=== PATIENT | female | born 1975 | race Caucasian/White ===

== ENCOUNTER 2016-08-19 14:59 | Outpatient (CLI) ==
--- NOTE | 2016-08-19 16:03 | DI ---
EXAM: Six views of bilateral ribs. History: Bilateral rib pain. Findings: The visualized lungs are free of consolidation. No pleural fluid and no pneumothorax. N o acute displaced rib fractures identified. Surgical clips seen within the right upper quadrant of the abdomen. Impression: Unremarkable study.
--- NOTE | 2016-08-19 16:03 | DI ---
EXAM: Lumbar spine radiographs. HISTORY: Back pain. COMPARISON: None available. TECHNIQUE: Three views of the lumbar spine. FINDINGS: The normal curvature and alignment are maintained. Vertebral body and intervertebral dis c heights are normal. No fracture or subluxation identified. Mild endplate osteophyte formation se en at L3-4 and L4-5. Mild lower lumbar facet arthropathy is present. Sacral arcuate lines are inta ct. Soft tissues are unremarkable. Clips seen in the right abdomen. IMPRESSION: Mild lower lumbar degenerative changes.
== END 2016-08-19 15:00 | disposition home or self-care (01) ==
LOC: RAD 14:59
PROVIDERS: ATTEND Family Medicine
DX: M54.5 Low back pain (principal); R07.81 Pleurodynia

== ENCOUNTER 2016-10-29 20:28 | Emergency (ER) ==
[2016-10-29] MEDS ORDERED: CATAPRES PO STA (20:31)
[2016-10-29] MEDS ORDERED: LOPRESSOR PO STA (20:31)
[2016-10-29] MEDS ORDERED: NORVASC PO STA (20:31)
[2016-10-29 20:36] VITALS: BP 166/111; TEMP 97.6; BMI 38.2
[2016-10-29 20:48] LABS: BASOPHILS % (AUTO) 0.3 % (0.0-3.0); EOSINOPHILS # (AUTO) 0.2 K/ul (0.0-0.7); HEMATOCRIT 39.3 % (37.0-47.0); HEMOGLOBIN 13.6 g/dl (12.0-16.0); LYMPHOCYTES # (AUTO) 1.7 K/uL (0.60-3.4); LYMPHOCYTES % (AUTO) 24.6 (10.0-50.0); MEAN CORPUSCULAR HEMOGLOBIN 29.5 pg (27.0-31.0); MEAN CORPUSCULAR HGB CONC 34.6 (31.8-35.4); MEAN CORPUSCULAR VOLUME 85.2 fl (81.0-99.0); MONOCYTES # (AUTO) 0.4 K/uL (0.4-2.0); MONOCYTES % (AUTO) 5.3 (0-10); NEUTROPHILS # (AUTO) 4.6 K/ul (2.0-6.9); NEUTROPHILS % (AUTO) 65.8; PLATELET COUNT 214 10^3/uL (140-440); RED BLOOD COUNT 4.61 10^6/ul (4.20-5.40); WHITE BLOOD COUNT 6.95 K/ul (4.6-10.2)
[2016-10-29 20:53] LABS: BILIRUBIN,URINE Negative (NEGATIVE); KETONES,URINE Trace (NEGATIVE); LEUKOCYTE ESTERASE ,URINE Negative (NEGATIVE); NITRITE,URINE Negative (NEGATIVE); PH,URINE 5.5 (5-9); PROTEIN,URINE 1+ (NEGATIVE); URINE, BLOOD Negative (NEGATIVE)
[2016-10-29 20:57] LABS: ADD URINE MICROSCOPIC YES
[2016-10-29 20:58] LABS: BACTERIA,URINE 1+ (NOT PRESENT)
[2016-10-29 21:15] LABS: ALANINE AMINOTRANSFERASE 40 U/L (12-78); ALBUMIN 3.5 g/dL (3.4-5.0); ALBUMIN/GLOBULIN RATIO 0.95; ALKALINE PHOSPHATASE 105 U/L (42-98); ANION GAP 14.7; ASPARTATE AMINO TRANSFERASE 34 U/L (15-37); BILIRUBIN,TOTAL 0.28 mg/dL (0.00-1.20); BLOOD UREA NITROGEN 12 mg/dL (7-18); BUN/CREATININE RATIO 14.11; CALCIUM 9.4 mg/dL (8.2-10.2); CARBON DIOXIDE 24 mmol/L (21-32); CHLORIDE 106 mmol/L (98-107); CREATINE KINASE 49 U/L; CREATININE 0.85 mg/dL (0.60-1.30); GLUCOSE 138 mg/dL (70-110); POTASSIUM 3.7 mmol/L (3.5-5.10); SODIUM 141 mmol/L (136-145); TOTAL PROTEIN 7.2 g/dL (6.4-8.2)
--- NOTE | 2016-10-29 21:32 | ED.PDOC ---
General ED Provider: Dr. JEREL HARTMANN-ER Chief Complaint: Hypertension Stated Complaint: daniel been out of my mds for a week--my bp is up--i had a awlker earlier and cp earlier but not now Time Seen by Physician: 20:35 Mode of Arrival: Walk-In Information Source: Patient Exam Limitations: No limitations Primary Care Provider: BRIGIDA RAJAN Nursing and Triage Documentation Reviewed and Agree: Yes Cardiovascular Complaint Exam - Hypertension Complaint/Exam Onset/Duration: 4 days Symptoms Are: Still present Timing: Constant Reported B/P Prior to Arrival: 180/90- Aggravating: Reports: None Alleviating: Reports: None Associated Signs and Symptoms: Denies: Chest pain, Vision changes, Anxiety, Recent stress, Headache, Numbness, Tingling, Weakness, Dizziness, Short of air, Swelling Related History: Reports: Similar episode Related Surgical History: Reports: None Cardiac Risk Factors: Reports: Hypertension Recent Change in Medications: Yes (shecant find them for a week) A/V [place]: No Papilledema Present: No JVD Present: No Carotid Bruit Present: No Femoral Pulses Bounding: No Differential Diagnoses: Hypertension Quality Indicator For Non-Traumatic Chest Pain/Syncope: EKG Performed Review of Systems - Review Of Systems Constitutional: Reports: No symptoms Eyes: Reports: No symptoms Ears, Nose, Mouth, Throat: Reports: No symptoms Respiratory: Reports: No symptoms Cardiac: Reports: No symptoms GI: Reports: No symptoms : Reports: No symptoms Musculoskeletal: Reports: No symptoms Skin: Reports: No symptoms Neurological: Reports: No symptoms Endocrine: Reports: No symptoms Hematologic/Lymphatic: Reports: No symptoms All Other Systems: Reviewed and Negative Past Medical History - Past Medical History Endocrine: Reports: Unknown Cardiovascular: Reports: Hypertension Respiratory: Reports: Unknown Hematological: Reports: Unknown Gastrointestinal: Reports: Unknown Genitourinary: Reports: Unknown Neuro/Psych: Reports: Unknown Musculoskeletal: Reports: Unknown Cancer: Reports: Unknown Last Menstrual Period: LAST WEEK - Surgical History General Surgical History: Reports: Unknown - Family History Family History: Reports: Unknown - Social History Smoking Status: Former smoker Hx Substance Use: No Alcohol Screening: None - Immunizations Tetanus Shot up to Date: No Physical Exam - Physical Exam Appearance: Well-appearing, No pain distress, Well-nourished Eyes: MODESTA, EOMI, Conjunctiva clear ENT: Ears normal Neck: Supple Respiratory: Airway patent, Breath sounds clear, Breath sounds equal, Respirations nonlabored Cardiovascular: RRR, Pulses normal, No rub, No murmur GI/: Soft, Nontender, No masses, Bowel sounds normal, No Organomegaly Musculoskeletal: Normal strength, ROM intact, No edema, No calf tenderness Skin: Warm, Dry, Normal color Neurological: Sensation intact Psychiatric: Affect appropriate, Mood appropriate Interpretation - EKG Interpretation Time of EKG #1: 21:32 Rate: Normal Rhythm: Sinus Ectopy: None [place]: NL ST Segment: Normal Re-Evaluation - Re-Evaluation Time of Re-Evaluation: 21:33 (no walker or chest pain) Status: Improved Vital Signs Stable: Yes (bp 149/82) Pain Level: 0 Appearance: NAD Lungs: Clear Skin: Warm and Dry Neuro: Alert and Oriented X3 CV: RRR Critical Care Note - Critical Care Note Total Time (mins): 0 Course - Course Hematology/Chemistry: 10/29/16 20:45 10/29/16 20:45 Orders, Labs, Meds: Lab Review 10/29/16 20:45 WBC 6.95 RBC 4.61 Hgb 13.6 Hct 39.3 MCV 85.2 MCH 29.5 MCHC 34.6 RDW Coeff of Jonah 14.4 Plt Count 214 Immature Gran % (Auto) 1.0 Neut % (Auto) 65.8 Lymph % (Auto) 24.6 Dyer % (Auto) 5.3 Eos % (Auto) 3.0 Baso % (Auto) 0.3 Immature Gran # (Auto) 0.1 Neut # 4.6 Lymph # 1.7 Dyer # 0.4 Eos # 0.2 Baso # 0.0 Sodium 141 Potassium 3.7 Chloride 106 Carbon Dioxide 24 Anion Gap 14.7 BUN 12 Creatinine 0.85 Estimated GFR (MDRD) 74.00 BUN/Creatinine Ratio 14.11 Glucose 138 H Calcium 9.4 Total Bilirubin 0.28 AST 34 ALT 40 Alkaline Phosphatase 105 H Total Creatine Kinase 49 Troponin I < 0.0100 Total Protein 7.2 Albumin 3.5 Globulin 3.7 Albumin/Globulin Ratio 0.95 Urine Color Yellow Urine Clarity Clear Urine pH 5.5 Ur Specific [place] 1.025 Urine Protein 1+ Urine Glucose (UA) Negative Urine Ketones Trace Urine Blood Negative Urine Nitrite Negative Urine Bilirubin Negative Urine Urobilinogen 0.2 Ur Leukocyte Esterase Negative Urine Microscopic WBC 0-2 Ur Squamous Epith Cells 5-10 Urine Bacteria 1+ Urine Mucus 2+ Orders Category Date Time Status EKG-(ED ONLY) Stat CARDIO 10/29/16 20:38 Completed Cover Machine Operator [ED PROTEIN SCIENTIST APPLIED] .ONCE EMERGENCY 10/29/16 20:30 Active CBC W/ AUTO DIFF Stat LAB 10/29/16 20:45 Completed COMPREHENSIVE METABOLIC PANEL Stat LAB 10/29/16 20:45 Completed CREATINE KINASE Stat LAB 10/29/16 20:45 Completed TROPONIN I Stat LAB 10/29/16 20:45 Completed URINALYSIS C & S IF INDICATED Stat LAB 10/29/16 20:45 Completed URINE CULTURE Stat LAB 10/29/16 20:45 Received Amlodipine Besylate [Norvasc] MEDS 10/29/16 20:31 Discontinued 10 mg PO ONCE STA Clonidine HCl [Catapres] MEDS 10/29/16 20:31 Discontinued 0.1 mg PO ONCE STA Metoprolol Tartrate [Lopressor] MEDS 10/29/16 20:31 Discontinued 50 mg PO ONCE STA Medications Discontinued Medications Generic Name Dose Route Start Last Admin Trade Name Freq PRN Reason Stop Dose Admin Amlodipine Besylate 10 mg 10/29/16 20:31 10/29/16 20:52 Norvasc PO 10/29/16 20:32 10 mg ONCE STA Administration Clonidine 0.1 mg 10/29/16 20:31 10/29/16 20:51 Catapres PO 10/29/16 20:32 0.1 mg ONCE STA Administration Metoprolol Tartrate 50 mg 10/29/16 20:31 10/29/16 20:51 Lopressor PO 10/29/16 20:32 50 mg ONCE STA Administration Vital Signs: Temp Pulse Resp BP Pulse Ox 10/29/16 20:30 97.6 F 90 20 166/111 H 97 SEA Risk Score SEA Risk Score: Risk Score Odds of by 30D 0 0.1 (0.1-0.2) 1 0.3 (0.2-0.3) 2 0.4 (0.3-0.5) 3 0.7 (0.6-0.9) 4 1.2 (1.0-1.5) 5 2.2 (1.9-2.6) 6 3.0 (2.5-3.6) 7 4.8 (3.8-6.1) Departure - Departure Time of Disposition: 21:33 Disposition: HOME SELF-CARE Discharge Problem: Hypertension Qualifiers: Hypertension type: essential hypertension Qualifier Code: (I10) Essential ( primary) hypertension Instructions: Chronic Hypertension (ED) Condition: Good Pt referred to PMD for follow-up: Yes Additional Instructions: go to dr matthew office in am and ask nurse for replacement meds Allergies/Adverse Reactions: Allergies morphine Adverse Reaction (Verified 10/29/16 20:40) Swelling Home Medications: Ambulatory Orders Amlodipine Besylate 10 mg PO DAILY 10/29/16 Carvedilol [Coreg] 3.125 mg PO BIDWM 10/29/16 Clopidogrel Bisulfate [Plavix] 75 mg PO DAILY 10/29/16 Gabapentin 100 mg PO TID 10/29/16 Lisinopril [Zestril] 40 mg PO DAILY 10/29/16 Metformin HCl 1,000 mg PO BEDTIME 10/29/16 Disposition Discussed With: Patient
== END 2016-10-29 21:39 | disposition home or self-care (01) ==
LOC: ED 20:28
DX: I10 Essential (primary) hypertension (principal); Z79.899 Other long term (current) drug therapy
CPT/HCPCS: 36415; 80053; 81001; 82550; 84484; 85025; 87086; 93005; 93010; 99283

== ENCOUNTER 2017-04-05 21:45 | Outpatient (CLI) | END 2017-04-05 21:46 | disposition home or self-care (01) | LOC: AMBL 21:45 | PROVIDERS: ATTEND Family Medicine | DX: R07.9 Chest pain, unspecified (principal); I25.2 Old myocardial infarction ==

== ENCOUNTER 2017-07-27 08:41 | Outpatient (RCR) ==
--- NOTE | 2017-07-28 10:34 | RS.OPPTEV2 ---
Date of Note: 07/27/17 Visit #: 1 Date of Evaluation: 07/27/17 Payer Source: Medicaid Surgery Performed?: No Treatment Diagnosis: headaches, concussion, chronic back pain History of Condition/Mechanism of Injury:: pt states she was in sleeping compartment of semi truck when started truck and she was thrown back and hit her head causing concussion approx 3 weeks ago. Prior Level of Function.....Patient was independent with: ADL's, Self Care, Caregiving, Ambulation/Mobility, Community Integration/Access Functional Limitations: Sleep, Lifting Current Subjective/complaints:: pt states she has had long history of ORDONEZ but has had one continuous since concussion. She states she also has long history of chronic back pain. 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 Treatment Side (optional): N/A *Precautions: n/a Medical History Medical History: Hypertension, Diabetes Medical History Comments:: CAD, s/p 2 MA Surgical History: Cholecystectomy Surgical History Comments:: appey, cardiac stents Smoking Status: Former smoker Hx Home Medications: amlodipine, aspirin, atorvastatin, carvedilol, divalproex, gabapentin, lisinopril, meloxicam, metformin ER, omeprazole, ondansetron, sertraline, ticagrelor Patient's Goals: decrease pain with headache. Pain Assessment - Pain Description Pain Location: headache Pain Description: Aching Current Pain Intensity: 5/10 Functional Outcome Measure Neck Disability Index: 18 - G Codes & Severity Modifier G Codes & Modifier: n/a Source of G Code score: n/a Observation - Observation Posture: Forward Head, Rounded Shoulders Gait - Gait Pattern General Gait Pattern Observation: No Deviations/Normal General Range of Motion: WFL's all 4 extr's Muscle Strength: BUE grossly 5/5. BLE grossly 5/5 - ROM Comments: ROM WFL's with pain with flex and side bending - Special Tests Foraminal Distraction: Negative Foraminal Compression: Negative Left, Negative Right - ROM Lumbar Flexion: Hand reach to patellae Sidebending to Left: Reach to Mid-thigh Sidebending to Right: Reach to Mid-thigh Lumbar Spine ROM Limitations: Soft Tissue Tightness, Pain Comments: pt reports no pain in lumbar spine at rest, pain only with twisting motions and side bending. pt with B hamstring tightness noted - Special Tests SLR Test: Negative Left, Negative Right Palpation Palpation Findings: Trigger Point, Muscle Guarding Comments:: pt with muscle tightness noted in cervical paraspinals R worse than L. muscle tightness b upper trap L worse than R. trigger points and tightness noted in L supraspinatus and along scapular border Sensation - Sensation Right Upper Extremity: Intact/Normal Left Upper Extremity: Intact/Normal Right Lower Extremity: Intact/Normal Left Lower Extremity: Intact/Normal Balance - Sitting Balance Static Sitting Balance: Normal Dynamic Sitting Balance: Normal - Standing Balance Static Standing Balance: Normal Dynamic Standing Balance: Normal - Treatment Modality: Electrical Stim Unattended Parameters/Method Applied: IFC x 20 mins cervical paraspinals and L upper trap at 10ma Treatment Area: cervical paraspinals and L upper trap Patient Position: Supine - Heat/Cryotherapy Treatment: Cryotherapy Comments:: cervical and upper trap Interventions - Exercise/Activities/Manual Therapy Exercises/Activities: pt performed gentle upper trap stretch, chin tucks, scapular retraction, shld shrugs x 5 to 10 reps. Manual Therapy: n/a HOME EXERCISE PROGRAM: pt given written HEP including chin tucks, scapular retraction, shld shrugs and upper trap stretch - Charges Timed Code Treatment Minutes: 42 Total Treatment Time: 60 Procedures billed for this date of service:: eval low, estim unattended, cold pack EVALUATION COMPLEXITY LEVEL EVALUATION COMPLEXITY LEVEL: HISTORY: Low (DM, HTN, ), EXAM OF BODY SYSTEMS: Low (pain, muscle tightness, ), CLINICAL PRESENTATION: Medium, CLINICAL DECISION MAKING: Medium Assessment Assessment: pt presents with headaches, cervical muscle tightness, trigger points as well as scapular trigger points and muscle tightness. Patient Education: Education of diagnosis, Home Exercise Program, Education of Plan of Care Rehab Potential: Good Short Term Goals Goal #1: pt rate pain <5/10 with activity Goal to be met by: 08/09/17 Goal #2: pt report having relief from headaches to allow pt to sleep Goal to be met by: 08/09/17 [facility] Goals Goal #1: decreased muscle tightness in cervical spine allowing ROM w less pain Goal to be met by: 08/23/17 Goal #2: pain < 3/10 with activity Goal to be met by: 08/23/17 Goal #3: pt independent with HEP Goal to be met by: 08/23/17 Goal #4: pt report ability to return to normal household activities Goal to be met by: 08/23/17 Plan - Treatment to be Provided Procedures: Therapeutic Exercises, Therapeutic Activity, Manual Therapy, Massage , Patient Education Modalities: Electrical Stimulation, Ultrasound/Phonophoresis, Class IV Laser, Cryotherapy, Hot Packs - Treatment Plan Frequency: 2 X week Duration: 4 weeks ORDER # VISITS AND/OR THROUGH DATE: 08/23/17 - Treatment Code (1) Chronic headaches Code(s): R51 - HEADACHE Qualifiers: Headache type: unspecified Intractability: intractable Qualified Code(s) : R51 - Headache (2) Muscle tightness Code(s): M62.89 - OTHER SPECIFIED DISORDERS OF MUSCLE (3) Concussion Code(s): S06.0X9A - CONCUSSION W LOSS OF CONSCIOUSNESS OF UNSP DURATION, INIT Qualifiers: Encounter type: initial encounter Loss of consciousness presence/duration: with LOC of unspecified duration Qualified Code(s): S06.0X9A - Concussion with loss of consciousness of unspecified duration, initial encounter
--- NOTE | 2017-07-30 15:02 | RS.CXNS ---
Date of scheduled appointment: 07/30/17 Type: No Show
== END 2017-08-18 ==
PROVIDERS: ATTEND Family Medicine
DX: R51 Headache (principal); S06.0X9D Concussion with loss of consciousness of unspecified duration, subsequent encounter; M54.9 Dorsalgia, unspecified; G89.29 Other chronic pain

== ENCOUNTER 2017-10-26 19:51 | Emergency (ER) ==
[2017-10-26 20:02] VITALS: BP 170/103; TEMP 99; BMI 38.0
--- NOTE | 2017-10-26 20:09 | ED.PDOC ---
General ED Provider: Dr. JEREL HARTMANN-ER Chief Complaint: Cough Stated Complaint: daniel had a cough--yellow sputum Time Seen by Physician: 20:06 Mode of Arrival: Walk-In Information Source: Patient Exam Limitations: No limitations Primary Care Provider: BRIGIDA DAVIS Nursing and Triage Documentation Reviewed and Agree: Yes Reviewed sepsis parameters & appropriate labs ordered?: Yes System Inflammatory Response Syndrome: Not Applicable Sepsis Protocol: For patient's 13 years and over: Temp is 96.8 and below OR 101 and greater Pulse >90 BPM Resp >20/minute Acutely Altered Mental Status Are patient's symptoms suggestive of a new infection, such as: -Pneumonia -Skin, Soft Tissue -Endocarditis -UTI -Bone, Joint Infection -Implantable Device -Acute Abdominal Infection -Wound Infection -Meningitis -Blood Stream Catheter Infection -Unknown Respiratory Complaint Exam - Respiratory Complaint/Exam Onset/Duration: 3 dahys Symptoms Are: Still present Timing: Intermittent Initial Severity: Mild Current Severity: Mild Location: Chest Character: Reports: Productive cough Aggravating: Reports: URI Alleviating: Reports: None Associated Signs and Symptoms: Reports: URI, Nasal congestion, Sore throat. Denies: Rapid breathing, Dyspnea, Fever, Chills, Chest pain, Pleuritic chest pain, Wheezing, Hemoptysis, Calf pain, Calf swelling, Edema, Hoarseness, Sinus discomfort, Vomiting, Weight loss, Decreased oral intake, Increased thirst, Increased appetite, Increased urination History of Healthcare-Acquired Pneumonia: No Related Surgical History: Reports: None Home Oxygen Use: No Recent Stress Test: No Recent Echo/LV Function: No Current Antibiotic Use: No Current Asthma Medication Use: No Respiratory Distress: None Inadequate Respiratory Effort: No Dysphagia Present: No Stridor Present: No Grunting Respirations: No Kussmaul Respirations: No Differential Diagnoses: Bronchitis Review of Systems - Review Of Systems Constitutional: Reports: No symptoms Eyes: Reports: No symptoms Ears, Nose, Mouth, Throat: Reports: Nose discharge Respiratory: Reports: Cough Cardiac: Reports: No symptoms GI: Reports: No symptoms : Reports: No symptoms Musculoskeletal: Reports: No symptoms Skin: Reports: No symptoms Neurological: Reports: No symptoms Endocrine: Reports: No symptoms Hematologic/Lymphatic: Reports: No symptoms All Other Systems: Reviewed and Negative Past Medical History - Past Medical History Previously Healthy: No Endocrine: Reports: Unknown Cardiovascular: Reports: Hypertension Respiratory: Reports: Unknown Hematological: Reports: Unknown Gastrointestinal: Reports: Unknown Genitourinary: Reports: Unknown Neuro/Psych: Reports: Unknown Musculoskeletal: Reports: Unknown Cancer: Reports: Unknown Last Menstrual Period: 1 month ago - Surgical History General Surgical History: Reports: Unknown - Family History Family History: Reports: Unknown - Social History Smoking Status: Former smoker Hx Substance Use: No Alcohol Screening: None - Immunizations Tetanus Shot up to Date: No (unsure) Physical Exam - Physical Exam Appearance: Well-appearing, No pain distress, Well-nourished Eyes: MODESTA, EOMI, Conjunctiva clear ENT: Ears normal Neck: Supple Respiratory: Airway patent, Breath sounds clear, Breath sounds equal, Respirations nonlabored Cardiovascular: RRR, Pulses normal, No rub, No murmur GI/: Soft, Nontender, No masses, Bowel sounds normal, No Organomegaly Musculoskeletal: Normal strength, ROM intact, No edema, No calf tenderness Skin: Warm, Dry, Normal color Neurological: Sensation intact, Motor intact, Reflexes intact, Cranial nerves intact, Alert, Oriented Psychiatric: Affect appropriate, Mood appropriate Critical Care Note - Critical Care Note Total Time (mins): 0 Course - Course Vital Signs: Temp Pulse Resp BP Pulse Ox 10/26/17 19:52 99 F 92 H 20 170/103 H 94 L Departure - Departure Time of Disposition: 20:10 Disposition: HOME SELF-CARE Discharge Problem: Bronchitis Instructions: Acute Bronchitis (ED) Condition: Good Pt referred to PMD for follow-up: Yes IPMP verified?: No Additional Instructions: augmentin 875mg bid x 7 days..mucinex 1200mg bid #30--tessalon perles 200mg tid prn #30--f/u with dr davis regarding the mass on your back Allergies/Adverse Reactions: Allergies morphine Adverse Reaction (Verified 10/26/17 19:57) Swelling Home Medications: Ambulatory Orders Amlodipine Besylate 10 mg PO DAILY 10/29/16 Carvedilol [Coreg] 3.125 mg PO BIDWM 10/29/16 Gabapentin 100 mg PO TID 10/29/16 Lisinopril [Zestril] 40 mg PO DAILY 10/29/16 Metformin HCl 1,000 mg PO BEDTIME 10/29/16 Carvedilol [Coreg] 6.25 mg PO BID 10/26/17 Ticagrelor [Brilinta] 90 mg PO BID 10/26/17 Disposition Discussed With: Patient, Family
== END 2017-10-26 20:15 | disposition home or self-care (01) ==
LOC: ED 19:51
DX: J20.9 Acute bronchitis, unspecified (principal); R22.2 Localized swelling, mass and lump, trunk
CPT/HCPCS: 99282

== ENCOUNTER 2017-12-24 17:57 | Emergency (ER) ==
[2017-12-24] MEDS ORDERED: ASPIRIN CHEWABLE PO STA (18:04)
[2017-12-24 18:05] VITALS: BP 153/79; BMI 37.8
[2017-12-24] MEDS ORDERED: DEMEROL 100 MG/ML SYRINGE IVP STA (18:05)
[2017-12-24] MEDS ORDERED: ZOFRAN 4 MG/2 ML IVP STA (18:05)
--- NOTE | 2017-12-24 18:21 | ED.PDOC ---
General Stated Complaint: CHEST PAIN Time Seen by Physician: 18:00 (STENTED X 3 , HX/O TX ) Mode of Arrival: Wheelchair Information Source: Patient Exam Limitations: No limitations Nursing and Triage Documentation Reviewed and Agree: Yes Does patient meet sepsis criteria?: Yes If yes, has appropriate treatment been initiated?: No System Inflammatory Response Syndrome: Not Applicable <KEMI BOYD - Last Filed: 12/24/17 18:50> <GLEN NORTON - Last Filed: 12/24/17 23:19> ED Provider: Dr. GLEN NORTON Chief Complaint: Chest Pain Primary Care Provider: BRIGIDA RAJAN Sepsis Protocol: For patient's 13 years and over: Temp is 96.8 and below OR 101 and greater Pulse >90 BPM Resp >20/minute Acutely Altered Mental Status Are patient's symptoms suggestive of a new infection, such as: -Pneumonia -Skin, Soft Tissue -Endocarditis -UTI -Bone, Joint Infection -Implantable Device -Acute Abdominal Infection -Wound Infection -Meningitis -Blood Stream Catheter Infection -Unknown Cardiovascular Complaint Exam - Chest Pain Complaint/Exam Onset: Gradual Duration: 1 HR AGO WHILE AT REST DOES NOT SMOKE HAS 3 STENTS Symptoms Are: Still present Timing: Constant Length of Chest Pain Episodes: 1 HR Initial Severity: Moderate Current Severity: Moderate Location: Reports: Midsternal Pain Radiates: Reports: Back Character: Reports: Aching, Tightness Aggravating: Reports: Movement Alleviating: Reports: None Associated Signs and Symptoms: Reports: Nausea, Cough. Denies: Diaphoresis, Vomiting, Fever, Palpitations, Hemoptysis, Back pain, Abdominal pain, Dizziness , Short of air, Calf pain, Calf swelling Related History: Reports: Similar episode (ANGINA ) Related Surgical History: Reports: None History of Healthcare-Acquired Pneumonia: Reports: No AMI/ACS Risk Factors: Reports: Sedentary, Diabetes, Obesity, Hypertension TAD Risk Factors: Reports: Hypertension Pulmonary Embolism Risk Factors: Reports: None Prior Care for this Complaint: Yes (STENTS [place] ,) Recent Stress Test: No Recent Echo/LV Function: No JVD Present: No Subcutaneous Emphysema Present: No Diminshed Breath Sounds: No Reproducible Chest Wall Pain: No Bilateral Pulses Present: Yes Unequal Pulses Noted: No If Risk Factors for AMI/ACS Consider: EKG Differential Diagnoses: ACS Quality Indicators For Acute TX or Cardiac Chest Pain: EKG in 10min. Quality Indicator For Non-Traumatic Chest Pain/Syncope: EKG Performed <KEMI BOYD Filed: 12/24/17 18:50> Review of Systems - Review Of Systems Constitutional: Reports: No symptoms Eyes: Reports: No symptoms Ears, Nose, Mouth, Throat: Reports: No symptoms Respiratory: Reports: No symptoms Cardiac: Reports: Chest pain GI: Reports: No symptoms : Reports: No symptoms Musculoskeletal: Reports: No symptoms Skin: Reports: No symptoms Neurological: Reports: No symptoms Endocrine: Reports: No symptoms Hematologic/Lymphatic: Reports: No symptoms All Other Systems: Reviewed and Negative <KEMI BOYD Filed: 12/24/17 18:50> - Review Of Systems Constitutional: Reports: No symptoms Eyes: Reports: No symptoms Ears, Nose, Mouth, Throat: Reports: No symptoms Respiratory: Reports: No symptoms Cardiac: Reports: No symptoms GI: Reports: Abdomen distended, Abdominal pain : Reports: No symptoms Musculoskeletal: Reports: No symptoms Skin: Reports: No symptoms Neurological: Reports: No symptoms Endocrine: Reports: No symptoms Hematologic/Lymphatic: Reports: No symptoms All Other Systems: Reviewed and Negative <EUGENE NORTONAN - Last Filed: 12/24/17 23:19> Past Medical History - Past Medical History Previously Healthy: No Endocrine: Reports: Unknown Cardiovascular: Reports: Hypertension Respiratory: Reports: Unknown Hematological: Reports: Unknown Gastrointestinal: Reports: Unknown Genitourinary: Reports: Unknown Neuro/Psych: Reports: Unknown Musculoskeletal: Reports: Unknown Cancer: Reports: Unknown Last Menstrual Period: 2 weeks ago - Surgical History General Surgical History: Reports: Unknown - Family History Family History: Reports: Unknown - Social History Smoking Status: Former smoker Hx Substance Use: No Alcohol Screening: None <KEMI BOYD Filed: 12/24/17 18:50> - Past Medical History Previously Healthy: Yes Endocrine: Reports: DM 2, Dyslipidemia Cardiovascular: Reports: CAD Respiratory: Reports: None Hematological: Reports: None Gastrointestinal: Reports: None Genitourinary: Reports: None Neuro/Psych: Reports: None Musculoskeletal: Reports: None Cancer: Reports: None - Surgical History General Surgical History: Reports: Tubal ligation, Cholecystectomy - Family History Family History: Reports: None <GLEN NORTON Last Filed: 12/24/17 23:19> Physical Exam - Physical Exam Appearance: Ill-appearing Ill-appearing: Moderate Pain Distress: Moderate Eyes: MODESTA, EOMI, Conjunctiva clear ENT: Ears normal, Nose normal, Oropharynx normal Respiratory: Airway patent, Breath sounds clear, Breath sounds equal, Respirations nonlabored Cardiovascular: RRR, Pulses normal, No rub, No murmur GI/: Soft, Nontender, No masses, Bowel sounds normal, No Organomegaly Musculoskeletal: Normal strength, ROM intact, No edema, No calf tenderness Skin: Warm, Dry, Normal color Neurological: Sensation intact, Motor intact, Reflexes intact, Cranial nerves intact, Alert, Oriented Psychiatric: Affect appropriate, Mood appropriate <KARINEELYSSAKEMI Last Filed: 12/24/17 18:50> - Physical Exam Appearance: Ill-appearing Eyes: MODESTA, EOMI, Conjunctiva clear ENT: Ears normal, Nose normal, Oropharynx normal Respiratory: Airway patent, Breath sounds clear, Breath sounds equal, Respirations nonlabored Cardiovascular: RRR, Pulses normal, No rub, No murmur GI/: Soft, No masses, Bowel sounds normal, No Organomegaly, Tender Musculoskeletal: Normal strength, ROM intact, No edema, No calf tenderness Skin: Warm, Dry, Normal color Neurological: Sensation intact, Motor intact, Reflexes intact, Cranial nerves intact, Alert, Oriented Psychiatric: Affect appropriate, Mood appropriate <GLEN NORTON - Last Filed: 12/24/17 23:19> 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 Rhythm: Sinus <KARINEELYSSAKEMI Last Filed: 12/24/17 18:50> Re-Evaluation - Re-Evaluation Time of Re-Evaluation: 18:30 Status: Improved Vital Signs Stable: Yes Pain Level: 2/10 Appearance: NAD Lungs: Clear Skin: Warm and Dry Neuro: Alert and Oriented X3 CV: RRR - Re-Evaluation Time of Re-Evaluation: 19:00 (REPEATING THIRD EKG) Status: Unchanged Vital Signs Stable: Yes Pain Level: 2/10 Appearance: NAD Skin: Warm and Dry Neuro: Alert and Oriented X3 CV: RRR <KEMI BOYD Last Filed: 12/24/17 18:50> Physician Notification - Case Discussed Physician Notified: CIERRA Time of Notification: 19:00 <KEMI BOYD - Last Filed: 12/24/17 18:50> - Case Discussed Time of Notification: 23:18 (Dr Styles) <GLEN NORTON - Last Filed: 12/24/17 23:19> Critical Care Note - Critical Care Note Total Time (mins): 0 <KEMI BOYD - Last Filed: 12/24/17 18:50> - Critical Care Note Total Time (mins): 30 <GLEN NORTON - Last Filed: 12/24/17 23:19> Course - Course Hematology/Chemistry: 12/24/17 18:18 <KEMI BOYD - Last Filed: 12/24/17 18:50> - Course Hematology/Chemistry: 12/24/17 18:18 12/24/17 18:18 <GLEN NORTON - Last Filed: 12/24/17 23:19> - Course Orders, Labs, Meds: Lab Review 12/24/17 12/24/17 12/24/17 17:17 18:18 18:18 WBC 9.95 RBC 4.63 Hgb 12.6 Hct 38.8 MCV 83.8 MCH 27.2 MCHC 32.5 RDW Coeff of Jonah 15.5 H Plt Count 248 Immature Gran % (Auto) 1.1 Neut % (Auto) 79.2 Lymph % (Auto) 14.5 Wilson % (Auto) 4.1 Eos % (Auto) 0.7 Baso % (Auto) 0.4 Immature Gran # (Auto) 0.1 Neut # (Auto) 7.9 H Lymph # (Auto) 1.4 Wilson # (Auto) 0.4 Eos # (Auto) 0.1 Baso # (Auto) 0.0 PT 9.5 INR 0.95 APTT 24.5 Sodium Potassium Chloride Carbon Dioxide Anion Gap BUN Creatinine Estimated GFR (MDRD) BUN/Creatinine Ratio Glucose Calcium Total Bilirubin AST ALT Alkaline Phosphatase Total Creatine Kinase Troponin I Total Protein Albumin Globulin Albumin/Globulin Ratio Amylase 80 Lipase 375 H 12/24/17 18:18 WBC RBC Hgb Hct MCV MCH MCHC RDW Coeff of Jonah Plt Count Immature Gran % (Auto) Neut % (Auto) Lymph % (Auto) Wilson % (Auto) Eos % (Auto) Baso % (Auto) Immature Gran # (Auto) Neut # (Auto) Lymph # (Auto) Wilson # (Auto) Eos # (Auto) Baso # (Auto) PT INR APTT Sodium 142 Potassium 3.7 Chloride 106 Carbon Dioxide 24 Anion Gap 15.7 BUN 12 Creatinine 0.91 Estimated GFR (MDRD) 68.00 BUN/Creatinine Ratio 13.18 Glucose 152 H Calcium 9.0 Total Bilirubin 0.8 AST 202 H ALT 99 H Alkaline Phosphatase 527 H Total Creatine Kinase 64 Troponin I < 0.0100 Total Protein 7.3 Albumin 3.5 Globulin 3.8 Albumin/Globulin Ratio 0.92 Amylase Lipase Orders Category Date Time Status EKG-(ED ONLY) Stat CARDIO 12/24/17 18:03 Completed EKG-(ED ONLY) Stat CARDIO 12/24/17 18:30 Completed EKG-(ED ONLY) Stat CARDIO 12/24/17 18:52 Completed ED IV/MEDIPORT/POWERPORT .ONCE EMERGENCY 12/24/17 18:03 Active AMYLASE Stat LAB 12/24/17 17:17 Completed CBC W/ AUTO DIFF Stat LAB 12/24/17 18:18 Completed CMP [COMPREHENSIVE METABOLIC PANEL] Stat LAB 12/24/17 22:49 Received COMPREHENSIVE METABOLIC PANEL Stat LAB 12/24/17 18:18 Completed CREATINE KINASE Stat LAB 12/24/17 18:18 Completed CREATINE KINASE Stat LAB 12/24/17 22:49 Received D-DIMER Stat LAB 12/24/17 22:49 Received LIPASE Stat LAB 12/24/17 17:17 Completed PARTIAL THROMBOPLASTIN TIME Stat LAB 12/24/17 18:18 Completed PT WITH INR Stat LAB 12/24/17 18:18 Completed TROPONIN I Stat LAB 12/24/17 18:18 Completed TROPONIN I Stat LAB 12/24/17 22:49 Received 0.9 % Sodium Chloride [Saline Flush] MEDS 12/24/17 18:03 Ordered 1 syr IVF PRN PRN Aspirin [Aspirin Chewable] MEDS 12/24/17 18:04 Discontinued 243 mg PO ONCE STA Meperidine HCl/Pf [Demerol 100 mg/ml Syringe] MEDS 12/24/17 18:05 Discontinued 25 mg IVP ONCE STA Meperidine HCl/Pf [Demerol 50 mg/ml Vial] MEDS 12/24/17 19:21 Discontinued 50 mg IVP ONCE STA Ondansetron HCl/Pf [Zofran 4 mg/2 ml] MEDS 12/24/17 18:05 Discontinued 4 mg IVP ONCE STA CHEST, 1V AP ONLY Stat RADS 12/24/17 18:[address] ABDOMEN/PELVIS WO CONTRAST Stat RADS 12/24/17 18:53 Completed Medications Generic Name Dose Route Start Last Admin Trade Name Freq PRN Reason Stop Dose Admin Sodium Chloride 1 syr 12/24/17 18:03 12/24/17 19:33 Saline Flush IVF 1 syr PRN PRN Administration To flush IV Discontinued Medications Generic Name Dose Route Start Last Admin Trade Name Freq PRN Reason Stop Dose Admin Aspirin 243 mg 12/24/17 18:04 12/24/17 18:11 Aspirin Chewable PO 12/24/17 18:05 243 mg ONCE STA Administration Meperidine HCl 25 mg 12/24/17 18:05 12/24/17 18:10 Demerol 100 Mg/Ml Syringe IVP 12/24/17 18:06 25 mg ONCE STA Administration Meperidine HCl 50 mg 12/24/17 19:21 12/24/17 19:28 Demerol 50 Mg/Ml Vial IVP 12/24/17 19:22 50 mg ONCE STA Administration Ondansetron HCl 4 mg 12/24/17 18:05 12/24/17 18:10 Zofran 4 Mg/2 Ml IVP 12/24/17 18:06 4 mg ONCE STA Administration Vital Signs: Temp Pulse Resp BP Pulse Ox 12/24/17 21:56 98.6 F 12/24/17 17:58 96.8 F L 55 L 24 153/79 H 99 SEA Risk Score Age >/= 65: No >/= 3 CAD Risk Factors: Yes Known CAD (Stenosis >/= 50%): Yes ASA Use in Past 7 Days: Yes Severe Angina (>/= 2 episodes in 24 hours): Yes EKG ST Changes >/= 0.5mm: Yes Postive Cardiac Marker: No SEA Total Score: 5 <GLEN NORTON - Last Filed: 12/24/17 23:19> SEA Risk Score: Risk Score Odds of by 30D 0 0.1 (0.1-0.2) 1 0.3 (0.2-0.3) 2 0.4 (0.3-0.5) 3 0.7 (0.6-0.9) 4 1.2 (1.0-1.5) 5 2.2 (1.9-2.6) 6 3.0 (2.5-3.6) 7 4.8 (3.8-6.1) Departure - Departure Pt referred to PMD for follow-up: Yes IPMP verified?: No Disposition Discussed With: Patient, Family <KEMI BOYD - Last Filed: 12/24/17 18:50> - Departure Time of Disposition: 23:18 <GLEN NORTON - Last Filed: 12/24/17 23:19> - Departure Disposition: TSF OTHER Discharge Problem: Chest pain Instructions: Angina (ED) Condition: Good Additional Instructions: Please call your Family Physician as soon as possible to schedule a follow-up appointment. Allergies/Adverse Reactions: Allergies morphine Adverse Reaction (Verified 12/24/17 18:05) Swelling Home Medications: Ambulatory Orders Amlodipine Besylate 10 mg PO DAILY 10/29/16 Gabapentin 100 mg PO TID 10/29/16 Lisinopril [Zestril] 40 mg PO DAILY 10/29/16 Metformin HCl 1,000 mg PO BEDTIME 10/29/16 Carvedilol [Coreg] 6.25 mg PO BID 10/26/17 Clopidogrel Bisulfate [Plavix] 75 mg PO DAILY 12/24/17
--- NOTE | 2017-12-24 19:15 | DI ---
Exam: Single view of the chest. Comparison: None available. Reason for exam: Pain. FINDINGS: Ground-glass opacities are seen in the left hemithorax. No pneumothorax is seen. The imag ed osseous structures appear grossly unremarkable without acute fracture. There is obscuration of the left heart border. Impression: Ground-glass in the left knee thorax likely accentuated by soft tissue may represent infl ammation or atelectasis/ infection. Two-view chest x-ray may be performed for further characterizatio n.
[2017-12-24] MEDS ORDERED: DEMEROL 50 MG/ML VIAL IVP STA (19:21)
--- NOTE | 2017-12-24 19:32 | CT ---
EXAM: CT ABDOMEN AND PELVIS HISTORY: Elevated liver enzymes TECHNIQUE: CT abdomen and pelvis without intravenous contrast. Images were reconstructed using 3 mm section thickness. Reformations were prepared. COMPARISON: None FINDINGS: Diagnostic limitations exist without including contrast enhanced images. The liver is enlarged with the right lobe at 23 cm. There is at least mild fatty infiltration of the liver. There is pneumobil ia possibly related to previous sphincterotomy. The patient is post cholecystectomy. The common bile duct is dilated measuring at least 11 mm. No pancreatic pathology is seen. The spleen is upper limi t normal in length at 13 cm. No adrenal mass. The kidneys and ureters appear normal. Mild atherosc lerotic disease of the abdominal aorta and iliac vessels. Enlarged periportal lymph nodes are seen. Stomach is within normal limits. No appendix is identified. Normal bowel gas pattern. Uterus and u rinary bladder appear normal. There is a 2.1 cm cystic mass in the left adnexa likely on the ovary. There is no ascites or inflammatory infiltration of the abdominal fat. No ventral abdominal wall hernia. The bones reveal degenerative facet disease of the lower spine. L subhash bases reveal probable pleuroparenchymal scarring posteriorly on the left. No pneumoperitoneum. IMPRESSION: 1. Enlarged fatty liver. Post cholecystectomy state. Pneumobilia is noted. Common bile duct is dil ated/ectatic. No gross choledocholithiasis or pancreatic pathology. 2. Splenic length upper limit normal at 13 cm. 3. Enlarged periportal lymph nodes are nonspecific. 4. Small 2.1 cm cystic mass left adnexa likely on the ovary. This can be followed by ultrasound. 5. Scarring in the left lung base.
[2017-12-24 21:57] VITALS: TEMP 98.6
[2017-12-25] MEDS ORDERED: LOVENOX SUBCUT STA (00:41)
[2017-12-25] MEDS ORDERED: LOVENOX ONE (00:42)
--- NOTE | 2017-12-25 00:58 | CT ---
EXAM: CT pulmonary angiogram. HISTORY: Chest pain. Evaluate for pulmonary embolism. PROCEDURE: After the intravenous injection of contrast contiguous axial CT images of the chest were obtained with multiplanar reformats, MIP images and 3-D reformats. FINDINGS: There is motion artifact which limits the exam. There is normal enhancement of the pulmonar y arteries with no evidence of pulmonary embolism. The heart is enlarged. The thoracic aorta is nor mal in appearance. There is an enlarged subcarinal lymph node measuring up to 1.4 cm in short axis. T here are patchy areas of consolidation throughout the left lung consistent with pneumonia. There is m inimal right basilar dependent atelectasis. The bones and soft tissues are unremarkable. The gallblad evonne is surgically absent. There is minimal pneumobilia. The adrenal glands are normal in appearance. Impression: No evidence of pulmonary embolism. Left lung consolidation as described consistent with pneumonia. Minimal right basilar dependent atelectasis. Subcarinal lymphadenopathy as described which is probably reactive. Recommend follow-up CT in 3 holly hs to confirm stability. Cardiomegaly. Cholecystectomy with minimal pneumobilia.
== END 2017-12-25 00:50 | disposition short-term general hospital (02) ==
LOC: ED 17:57
DX: R07.9 Chest pain, unspecified (principal); E11.9 Type 2 diabetes mellitus without complications; I10 Essential (primary) hypertension; I25.2 Old myocardial infarction; E78.5 Hyperlipidemia, unspecified; I25.10 Atherosclerotic heart disease of native coronary artery without angina pectoris; E66.9 Obesity, unspecified; Z95.5 Presence of coronary angioplasty implant and graft
CPT/HCPCS: 36415; 80053; 82150; 82550; 83690; 84484; 85025; 85379; 85610; 85730; 93005; 93010; 96372; 96374; 96375; 96376; 99285

== ENCOUNTER 2018-06-20 15:11 | Emergency (ER) ==
[2018-06-20 15:21] VITALS: BP 150/76; TEMP 98.3; BMI 38.9
[2018-06-20] MEDS ORDERED: NORCO 10-325 PO STA (15:57)
--- NOTE | 2018-06-20 15:59 | ED.PDOC ---
General ED Provider: Dr. KEMI BOYD Chief Complaint: Head Injury Stated Complaint: HEAD INJURY W/O L.O.C. Time Seen by Physician: 15:15 (NO LOC) Mode of Arrival: Walk-In Information Source: Patient Exam Limitations: No limitations Primary Care Provider: BRIGIDA RAJAN Nursing and Triage Documentation Reviewed and Agree: Yes Does patient meet sepsis criteria?: No If yes, has appropriate treatment been initiated?: No System Inflammatory Response Syndrome: Not Applicable Sepsis Protocol: For patient's 13 years and over: Temp is 96.8 and below OR 101 and greater Pulse >90 BPM Resp >20/minute Acutely Altered Mental Status Are patient's symptoms suggestive of a new infection, such as: -Pneumonia -Skin, Soft Tissue -Endocarditis -UTI -Bone, Joint Infection -Implantable Device -Acute Abdominal Infection -Wound Infection -Meningitis -Blood Stream Catheter Infection -Unknown Trauma/Injury Complaint Exam - Trauma Complaint/Exam Location of Pain or Injury: Reports: Other (TOP OF SCALP) Mechanism of Injury: Reports: Other (HEAD INJURY) Onset/Duration: 1 DAY Symptoms Are: Still present Timing of Treatment: Immediate Initial Severity: Moderate Current Severity: Mild Character: Reports: Aching Aggravating: Reports: None Alleviating: Reports: None Associated Signs and Symptoms: Denies: LOC, Confusion, Memory loss, Lethargy, Vomiting, Bleeding, Bruising, Swelling, Extremity disuse, Painful respiration, Hoarseness, Dysphagia, Hemoptysis, Significant blood loss Penetrating Injury Risk Factors: Reports: None Related Surgical History: Reports: None Nexus Low Risk Criteria: No post-midline CS tender, No evidence of intoxicat., No Altered LOC, No focal neuro deficit, No distracting injuries Glascow Coma Scale (see protocol): 15 Review of Systems - Review Of Systems Constitutional: Reports: No symptoms Eyes: Reports: No symptoms Ears, Nose, Mouth, Throat: Reports: No symptoms Respiratory: Reports: No symptoms Cardiac: Reports: No symptoms GI: Reports: No symptoms : Reports: No symptoms Musculoskeletal: Reports: No symptoms Skin: Reports: No symptoms Neurological: Reports: Headache Endocrine: Reports: No symptoms Hematologic/Lymphatic: Reports: No symptoms All Other Systems: Reviewed and Negative Past Medical History - Past Medical History Previously Healthy: Yes Endocrine: Reports: DM 2, Dyslipidemia Cardiovascular: Reports: CAD Respiratory: Reports: None Hematological: Reports: None Gastrointestinal: Reports: None Genitourinary: Reports: None Neuro/Psych: Reports: None Musculoskeletal: Reports: None Cancer: Reports: None Last Menstrual Period: last month - Surgical History General Surgical History: Reports: Tubal ligation, Cholecystectomy - Family History Family History: Reports: None - Social History Smoking Status: Former smoker Hx Substance Use: No Alcohol Screening: None Physical Exam - Physical Exam Appearance: Well-appearing, No pain distress, Well-nourished Eyes: MODESTA, EOMI, Conjunctiva clear ENT: Ears normal, Nose normal, Oropharynx normal Respiratory: Airway patent, Breath sounds clear, Breath sounds equal, Respirations nonlabored Cardiovascular: RRR, Pulses normal, No rub, No murmur GI/: Soft, Nontender, No masses, Bowel sounds normal, No Organomegaly Musculoskeletal: Normal strength, ROM intact, No edema, No calf tenderness Skin: Warm, Dry, Normal color Neurological: Sensation intact, Motor intact, Reflexes intact, Cranial nerves intact, Alert, Oriented Psychiatric: Affect appropriate, Mood appropriate Critical Care Note - Critical Care Note Total Time (mins): 0 Course - Course Orders, Labs, Meds: Lab Review 06/20/18 16:05 Urine Test Negative Orders Category Date Time Status URINE Stat LAB 06/20/18 16:05 Completed Hydrocodone Bit/Acetaminophen [[place] 10-325] MEDS 06/20/18 15:57 Discontinued 1 tab PO ONCE STA CT CERVICAL SPINE W/O CONTRAST Stat RADS 06/20/18 15:[address] HEAD W/O CONTRAST Stat RADS 06/20/18 15:56 Completed Medications Discontinued Medications Generic Name Dose Route Start Last Admin Trade Name Reji PRN Reason Stop Dose Admin Hydrocodone Bitart/Acetaminophen 1 tab 06/20/18 15:57 06/20/18 16:07 [place] 10-325 PO 06/20/18 15:58 1 tab ONCE STA Administration Vital Signs: Temp Pulse Resp BP Pulse Ox 06/20/18 15:12 98.3 F 79 20 150/76 H 93 L Departure - Departure Time of Disposition: 17:00 Disposition: HOME SELF-CARE Discharge Problem: Injury of head Headache Qualifiers: Headache type: unspecified Headache chronicity pattern: acute headache Intractability: not intractable Qualified Code(s): R51 - Headache Cervical sprain Qualifiers: Encounter type: initial encounter Qualified Code(s): S13.9XXA - Sprain of joints and ligaments of unspecified parts of neck, initial encounter Instructions: Cervical Strain (ED), Acute Headache (ED) Condition: Good Pt referred to PMD for follow-up: Yes IPMP verified?: No Additional Instructions: Please call your Family Physician as soon as possible to schedule a follow-up appointment. Allergies/Adverse Reactions: Allergies morphine Adverse Reaction (Verified 06/20/18 15:22) Swelling Home Medications: Ambulatory Orders Amlodipine Besylate 10 mg PO DAILY 10/29/16 Gabapentin 100 mg PO TID 10/29/16 Lisinopril [Zestril] 40 mg PO DAILY 10/29/16 Metformin HCl 1,000 mg PO BEDTIME 10/29/16 Carvedilol [Coreg] 6.25 mg PO BID 10/26/17 Clopidogrel Bisulfate [Plavix] 75 mg PO DAILY 12/24/17 Sertraline HCl [Zoloft] 200 mg PO DAILY 06/20/18
[2018-06-20 16:13] LABS: URINE PREGNANCY TEST NEGATIVE (NEGATIVE)
--- NOTE | 2018-06-20 16:47 | CT ---
EXAM: CT cervical spine without contrast. HISTORY: Cervical spine injury COMPARISON: None TECHNIQUE: Serial axial images of the cervical spine were obtained from the skull base through the l subhash apices without contrast. These were viewed in multiple planes. FINDINGS: Vertebral bodies demonstrate normal height, disc space and alignment. The C1 ring is inta ct. There is no lytic or blastic lesion. The odontoid process is unremarkable. There is no central or neural foraminal narrowing noted. Limited views of the soft tissues are unremarkable. The lung apices are clear. IMPRESSION: No acute abnormality or fracture of the cervical spine.
--- NOTE | 2018-06-20 16:50 | CT ---
EXAM: CT Head HISTORY: Injury, pain COMPARISON: None TECHNIQUE: CT head performed without contrast FINDINGS: There is no mass effect, midline shift, or intracranial hemmorhage. Melendez white differenti ation is preserved. There is no extra-axial collection. The ventricles, sulci, and basal cisterns a re patent and symmetric. There is no depressed calvarial fracture. The mastoid air cells are clear. Polypoid mucosal thickening right maxillary sinus likely mucous retention cyst. IMPRESSION: 1. No acute intracranial abnormality. 2. Sinus mucosal changes.
== END 2018-06-20 17:05 | disposition home or self-care (01) ==
LOC: ED 15:11
DX: S09.90XA Unspecified injury of head, initial encounter (principal); R51 Headache; S13.9XXA Sprain of joints and ligaments of unspecified parts of neck, initial encounter
CPT/HCPCS: 81025; 99283

== ENCOUNTER 2018-08-04 17:58 | Emergency (ER) ==
[2018-08-04 18:05] VITALS: BP 131/84; TEMP 98.2; BMI 39.4
--- NOTE | 2018-08-04 19:42 | ED.PDOC ---
General ED Provider: Dr. JIGAR RICKETTS Chief Complaint: Abdominal Pain Stated Complaint: Has periodic checks for stents in common bile duct due to "clogged bile".Last-in June 2018 .Now concerned with pressure in epigastrium and general abdominal discomfort.Eats and has BM daily.,Gives a phone # to call her doctors at [facility] when ready, Time Seen by Physician: 22:24 Mode of Arrival: Walk-In Information Source: Patient Exam Limitations: No limitations Primary Care Provider: BRIGIDA RAJAN Referred to ED by: Other Nursing and Triage Documentation Reviewed and Agree: Yes Does patient meet sepsis criteria?: No System Inflammatory Response Syndrome: Not Applicable Sepsis Protocol: For patient's 13 years and over: Temp is 96.8 and below OR 101 and greater Pulse >90 BPM Resp >20/minute Acutely Altered Mental Status Are patient's symptoms suggestive of a new infection, such as: -Pneumonia -Skin, Soft Tissue -Endocarditis -UTI -Bone, Joint Infection -Implantable Device -Acute Abdominal Infection -Wound Infection -Meningitis -Blood Stream Catheter Infection -Unknown GI Complaint Exam - Abdominal Pain Complaint/Exam Onset: Gradual Duration: ongoing Symptoms Are: Still present Timing: Intermittent Initial Severity: Moderate Current Severity: Mild Location of Pain: Diffuse, Epigastric Radiates To: Reports: Chest Character: Reports: Aching Aggravating: Reports: Food Alleviating: Reports: Rest, Medication Associated Signs and Symptoms: Reports: Chest pain, Decreased appetite, Decreased activity Review of Systems - Review Of Systems Constitutional: Reports: Loss of appetite, Other Eyes: Reports: No symptoms Ears, Nose, Mouth, Throat: Reports: No symptoms Respiratory: Reports: No symptoms Cardiac: Reports: No symptoms GI: Reports: Abdomen distended, Abdominal pain : Reports: No symptoms Musculoskeletal: Reports: No symptoms Skin: Reports: No symptoms Neurological: Reports: No symptoms Endocrine: Reports: No symptoms Hematologic/Lymphatic: Reports: No symptoms All Other Systems: Reviewed and Negative Past Medical History - Past Medical History Previously Healthy: Yes Endocrine: Reports: DM 2, Dyslipidemia Cardiovascular: Reports: CAD Respiratory: Reports: None Hematological: Reports: None Gastrointestinal: Reports: None Genitourinary: Reports: None Neuro/Psych: Reports: None Musculoskeletal: Reports: None Cancer: Reports: None Last Menstrual Period: last month - Surgical History General Surgical History: Reports: Tubal ligation, Cholecystectomy - Family History Family History: Reports: None - Social History Smoking Status: Former smoker Hx Substance Use: No Alcohol Screening: None Physical Exam - Physical Exam Appearance: Well-appearing Ill-appearing: None Pain Distress: Mild Eyes: MODESTA ENT: Ears normal Neck: Supple Respiratory: Airway patent Cardiovascular: RRR GI/: Soft, Bowel sounds hypoactive Musculoskeletal: Normal strength Skin: Warm, Dry Neurological: Sensation intact, Alert, Oriented Psychiatric: Affect appropriate Critical Care Note - Critical Care Note Total Time (mins): 0 Course - Course Hematology/Chemistry: 08/04/18 19:45 08/04/18 19:45 Orders, Labs, Meds: Lab Review 08/04/18 08/04/18 08/04/18 19:45 19:45 19:45 WBC 5.63 RBC 4.92 Hgb 12.3 Hct 39.6 MCV 80.5 L MCH 25.0 L MCHC 31.1 L RDW Coeff of Jonah 14.5 Plt Count 191 Immature Gran % (Auto) 0.7 Neut % (Auto) 66.8 Lymph % (Auto) 25.2 [place] % (Auto) 4.3 Eos % (Auto) 2.5 Baso % (Auto) 0.5 Immature Gran # (Auto) 0.0 Neut # (Auto) 3.8 Lymph # (Auto) 1.4 [place] # (Auto) 0.2 L Eos # (Auto) 0.1 Baso # (Auto) 0.0 PT 9.8 INR 0.98 Sodium 139.3 Potassium 4.40 Chloride 100.8 Carbon Dioxide 30.8 H Anion Gap 12.10 BUN 17.4 H Creatinine 0.63 Estimated GFR (MDRD) 104.00 BUN/Creatinine Ratio 27.61 Glucose 157.0 H Calcium 9.13 Total Bilirubin 0.30 AST 44.0 H ALT 31.9 Alkaline Phosphatase 111.0 Total Creatine Kinase 30.6 Troponin I < 0.012 Total Protein 7.18 Albumin 4.11 Globulin 3.07 Albumin/Globulin Ratio 1.33 Amylase 44.4 Lipase 89.3 Urine Color Urine Clarity Urine pH Ur Specific [place] Urine Protein Urine Glucose (UA) Urine Ketones Urine Blood Urine Nitrite Urine Bilirubin Urine Urobilinogen Ur Leukocyte Esterase Urine Test 08/04/18 08/04/18 20:35 20:35 WBC RBC Hgb Hct MCV MCH MCHC RDW Coeff of Jonah Plt Count Immature Gran % (Auto) Neut % (Auto) Lymph % (Auto) [place] % (Auto) Eos % (Auto) Baso % (Auto) Immature Gran # (Auto) Neut # (Auto) Lymph # (Auto) [place] # (Auto) Eos # (Auto) Baso # (Auto) PT INR Sodium Potassium Chloride Carbon Dioxide Anion Gap BUN Creatinine Estimated GFR (MDRD) BUN/Creatinine Ratio Glucose Calcium Total Bilirubin AST ALT Alkaline Phosphatase Total Creatine Kinase Troponin I Total Protein Albumin Globulin Albumin/Globulin Ratio Amylase Lipase Urine Color Yellow Urine Clarity Slightly Urine pH 7.0 Ur Specific [place] 1.025 Urine Protein Negative Urine Glucose (UA) Negative Urine Ketones Trace Urine Blood Negative Urine Nitrite Negative Urine Bilirubin Negative Urine Urobilinogen 0.2 Ur Leukocyte Esterase Negative Urine Test Negative Orders Category Date Time Status EKG-(ED ONLY) Stat CARDIO 08/04/18 19:29 Completed ED APPLY O2 .ONCE EMERGENCY 08/04/18 19:29 Active AMYLASE Stat LAB 08/04/18 19:45 Completed CBC W/ AUTO DIFF Stat LAB 08/04/18 19:45 Completed COMPREHENSIVE METABOLIC PANEL Stat LAB 08/04/18 19:45 Completed CREATINE KINASE Stat LAB 08/04/18 19:45 Completed LIPASE Stat LAB 08/04/18 19:45 Completed PT WITH INR Stat LAB 08/04/18 19:45 Completed TROPONIN I Stat LAB 08/04/18 19:45 Completed URINALYSIS C & S IF INDICATED Stat LAB 08/04/18 20:35 Completed URINE Stat LAB 08/04/18 20:35 Completed Hydromorphone HCl [Dilaudid 1 mg/ml Syringe] MEDS 08/04/18 19:58 Discontinued 1 mg .ROUTE .STK-MED ONE Hydromorphone HCl [Dilaudid 1 mg/ml Syringe] MEDS 08/04/18 19:56 Discontinued 1 mg IVP ONCE STA Hydromorphone HCl [Dilaudid 1 mg/ml Syringe] MEDS 08/04/18 21:05 Discontinued 1 mg IVP ONCE STA Promethazine HCl [Phenergan 25 mg/ml Vial] MEDS 08/04/18 19:58 Discontinued 25 mg .ROUTE .STK-MED ONE Promethazine HCl [Phenergan 25 mg/ml Vial] 25 mg MEDS 08/04/18 19:56 Discontinued 0.9 % Sodium Chloride [Sodium Chloride] [address] ABDOMEN/PELVIS WO CONTRAST Stat RADS 08/04/18 19:29 Completed Medications Discontinued Medications Generic Name Dose Route Start Last Admin Trade Name Reji PRN Reason Stop Dose Admin Hydromorphone HCl 1 mg 08/04/18 19:56 08/04/18 19:59 Dilaudid 1 Mg/Ml Syringe IVP 08/04/18 19:57 1 mg ONCE STA Administration Hydromorphone HCl 1 mg 08/04/18 21:05 08/04/18 21:06 Dilaudid 1 Mg/Ml Syringe IVP 08/04/18 21:06 1 mg ONCE STA Administration Promethazine HCl 25 mg/ Sodium 51 mls @ 75 mls/hr 08/04/18 19:56 08/04/18 20: 00 Chloride IV 08/04/18 20:36 75 mls/hr ONCE STA Administration Vital Signs: Temp Pulse Resp BP Pulse Ox 08/04/18 17:59 98.2 F 77 20 131/84 94 L Departure - Departure Time of Disposition: 22:18 Disposition: HOME SELF-CARE Discharge Problem: Cholangitis, obliterative, chronic Instructions: Cirrhosis (ED) Condition: Good Pt referred to PMD for follow-up: Yes IPMP verified?: No Additional Instructions: Dr Patel from [facility] notified about patients progress here in this ED.Advicing discharge home and f/u with [facility] as per patients arrangements, Allergies/Adverse Reactions: Allergies morphine Adverse Reaction (Verified 08/04/18 18:05) Swelling Home Medications: Ambulatory Orders Amlodipine Besylate 10 mg PO DAILY 10/29/16 Gabapentin 100 mg PO TID 10/29/16 Lisinopril [Zestril] 40 mg PO DAILY 10/29/16 Metformin HCl 1,000 mg PO BEDTIME 10/29/16 Carvedilol [Coreg] 6.25 mg PO BID 10/26/17 Clopidogrel Bisulfate [Plavix] 75 mg PO DAILY 12/24/17 Sertraline HCl [Zoloft] 200 mg PO DAILY 06/20/18 Hydrocodone/Acetaminophen [Hydrocodon-Acetaminoph 2.5-325] 1 each PO DAILY PRN 08/04/18 Lorazepam [Ativan] 0.25 mg PO BID PRN 08/04/18 Disposition Discussed With: Patient
[2018-08-04] MEDS ORDERED: PHENERGAN 25 MG/ML VIAL 25 MG in SODIUM CHLORIDE 50 ML IV STA (19:56)
[2018-08-04] MEDS ORDERED: DILAUDID 1 MG/ML SYRINGE IVP STA ×2 (19:56→21:05)
[2018-08-04] MEDS ORDERED: DILAUDID 1 MG/ML SYRINGE ONE (19:58)
[2018-08-04] MEDS ORDERED: PHENERGAN 25 MG/ML VIAL ONE (19:58)
[2018-08-04 20:40] LABS: URINE PREGNANCY TEST NEGATIVE (NEGATIVE)
--- NOTE | 2018-08-04 21:50 | CT ---
EXAM: CT scan of the abdomen and pelvis without contrast HISTORY: Abdominal pain TECHNIQUE: Helical imaging of the abdomen pelvis was performed without contrast. 3 mm thin axial im ages and coronal and sagittal reconstructions were provided for interpretation. Comparison CT scan of the abdomen pelvis dated 12/24/2017. FINDINGS: Diffuse low density changes are seen throughout the parenchyma of the liver. There is a s tent seen within the common bile duct. There has been previous cholecystectomy. The small and large bowel loops are normal caliber. There is no free air. The helical images obtained through the pelvis demonstrate a normal appearance of the rectum, urinary bladder. There is no free fluid seen within the pelvis. The appendix was not seen. No definite in flammatory changes are seen in the right lower quadrant. Scattered diverticula are seen within the s igmoid colon without acute inflammation. There is mild scarring versus atelectasis seen in the depen dent left lung base. The lung bases are otherwise clear. No lytic or blastic lesions are seen withi n the osseous structures. IMPRESSION: No evidence for small bowel obstruction or acute inflammatory change seen within the abd omen and pelvis. Interval stenting of the common bile duct. Fatty infiltration of the liver.
== END 2018-08-04 22:30 | disposition home or self-care (01) ==
LOC: ED 17:58
DX: K83.09 Other cholangitis (principal); E11.9 Type 2 diabetes mellitus without complications; E78.5 Hyperlipidemia, unspecified; I25.10 Atherosclerotic heart disease of native coronary artery without angina pectoris
CPT/HCPCS: 36415; 80053; 81001; 81025; 82150; 82550; 83690; 84484; 85025; 85610; 93005; 93010; 96365; 96375; 99283

== ENCOUNTER 2018-11-09 07:13 | Emergency (ER) ==
[2018-11-09 07:31] VITALS: BP 115/83; TEMP 99.5; BMI 37.2
[2018-11-09] MEDS ORDERED: DUONEB NEB STA (07:32)
--- NOTE | 2018-11-09 08:20 | DI ---
EXAM: Chest two views HISTORY: Cough COMPARISON: 12/24/2017 TECHNIQUE: Two views of the chest were performed FINDINGS: The lungs are clear. Blunting left costophrenic angle. No visible pneumothorax. The hea rt is normal in size. The mediastinal contour is normal. There are no acute abnormalities of the antony alpesh. IMPRESSION: Blunting left costophrenic angle may represent small pleural effusion versus pleural par enchymal scarring.
--- NOTE | 2018-11-09 08:42 | ED.PDOC ---
General ED Provider: Dr. KEMI BOYD Chief Complaint: Respiratory Complaint Stated Complaint: cough/ congestion Time Seen by Physician: 07:33 (seen with october) Mode of Arrival: Walk-In Information Source: Patient Exam Limitations: No limitations Primary Care Provider: BRIGIDA RAJAN Nursing and Triage Documentation Reviewed and Agree: Yes Does patient meet sepsis criteria?: No System Inflammatory Response Syndrome: Not Applicable Sepsis Protocol: For patient's 13 years and over: Temp is 96.8 and below OR 101 and greater Pulse >90 BPM Resp >20/minute Acutely Altered Mental Status Are patient's symptoms suggestive of a new infection, such as: -Pneumonia -Skin, Soft Tissue -Endocarditis -UTI -Bone, Joint Infection -Implantable Device -Acute Abdominal Infection -Wound Infection -Meningitis -Blood Stream Catheter Infection -Unknown Respiratory Complaint Exam - Respiratory Complaint/Exam Onset/Duration: 3 days had surgery last week Symptoms Are: Still present Timing: Intermittent Initial Severity: Mild Current Severity: Mild Location: Nose, Throat, Chest Character: Reports: Non-productive cough Aggravating: Reports: None Alleviating: Reports: Spontaneous resolution Associated Signs and Symptoms: Reports: Chills, URI, Nasal congestion, Sore throat. Denies: Rapid breathing, Dyspnea, Fever, Chest pain, Pleuritic chest pain, Wheezing, Hemoptysis, Dizziness, Calf pain, Calf swelling, Edema, Hoarseness, Sinus discomfort, Vomiting, Weight loss, Decreased oral intake, Increased thirst, Increased appetite, Increased urination Related History: Reports: Similar episode History of Healthcare-Acquired Pneumonia: No Pulmonary Embolism Risk Factors: None Pseudomonas Risk Factors: Reports: None Tuberculosis Risk Factors: Reports: None Status Asthmaticus Risk Factors: Reports: None Home Oxygen Use: No Recent Stress Test: No Recent Echo/LV Function: No Current Antibiotic Use: No Current Asthma Medication Use: No Respiratory Distress: None Inadequate Respiratory Effort: No Dysphagia Present: No Stridor Present: No JVD Present: No Accessory Muscle Use: No Retractions: Not Present Diminished Breath Sounds: No Sinus Tenderness: None Grunting Respirations: No Kussmaul Respirations: No Differential Diagnoses: Pneumonia, Bronchitis Review of Systems - Review Of Systems Constitutional: Reports: No symptoms Eyes: Reports: No symptoms Ears, Nose, Mouth, Throat: Reports: No symptoms Respiratory: Reports: Cough Cardiac: Reports: No symptoms GI: Reports: No symptoms : Reports: No symptoms Musculoskeletal: Reports: No symptoms Skin: Reports: No symptoms Neurological: Reports: No symptoms Endocrine: Reports: No symptoms Hematologic/Lymphatic: Reports: No symptoms All Other Systems: Reviewed and Negative Past Medical History - Past Medical History Previously Healthy: Yes Endocrine: Reports: DM 2, Dyslipidemia Cardiovascular: Reports: CAD Respiratory: Reports: None Hematological: Reports: None Gastrointestinal: Reports: None Genitourinary: Reports: None Neuro/Psych: Reports: None Musculoskeletal: Reports: None Cancer: Reports: None Last Menstrual Period: 09/19/2018 - Surgical History General Surgical History: Reports: Tubal ligation, Cholecystectomy - Family History Family History: Reports: None - Social History Smoking Status: Former smoker Hx Substance Use: No Alcohol Screening: None - Immunizations Tetanus Shot up to Date: Yes Physical Exam - Physical Exam Appearance: Well-appearing, No pain distress, Well-nourished Eyes: MODESTA, EOMI, Conjunctiva clear ENT: Ears normal, Nose normal, Oropharynx normal Respiratory: Rhonchi Cardiovascular: RRR, Pulses normal, No rub, No murmur GI/: Soft, Nontender, No masses, Bowel sounds normal, No Organomegaly Musculoskeletal: Normal strength, ROM intact, No edema, No calf tenderness Skin: Warm, Dry, Normal color Neurological: Sensation intact, Motor intact, Reflexes intact, Cranial nerves intact, Alert, Oriented Psychiatric: Affect appropriate, Mood appropriate Interpretation - Radiology Interpretation Radiology Interpretation By: Radiologist Radiology Results: Positive (right effusion discussed with present ct chest stressed hashad recent surgery) Critical Care Note - Critical Care Note Total Time (mins): 0 Course - Course Orders, Labs, Meds: Lab Review 11/09/18 07:30 Influ A Molecular Assay Negative by naat Influ B Molecular Assay Negative by naat Orders Category Date Time Status NEBULIZER TREATMENT Stat CARDIO 11/09/18 07:32 Completed FLU A/B MOLECULAR Stat LAB 11/09/18 07:30 Completed MOLECULAR GROUP A STREP Stat LAB 11/09/18 07:30 Completed Ipratropium/Albuterol Neb [Duoneb] MEDS 11/09/18 07:32 Discontinued 1 vial NEB ONCE STA CHEST, 2 VIEWS PA & LAT Stat RADS 11/09/18 07:31 Completed Medications Discontinued Medications Generic Name Dose Route Start Last Admin Trade Name Freq PRN Reason Stop Dose Admin Albuterol/Ipratropium 1 vial 11/09/18 07:32 11/09/18 07:45 Duoneb NEB 11/09/18 07:33 1 vial ONCE STA Administration Vital Signs: Temp Pulse Resp BP Pulse Ox 11/09/18 07:20 99.5 F 97 H 20 115/83 96 Departure - Departure Time of Disposition: 08:44 Disposition: HOME SELF-CARE Discharge Problem: Acute bronchitis Qualifiers: Bronchitis organism: unspecified organism Qualified Code(s): J20.9 - Acute bronchitis, unspecified Instructions: Bronchospasm (ED), Wheezing (ED), How Your Lungs Work (ED), Acute Bronchitis (ED) Condition: Good Pt referred to PMD for follow-up: Yes IPMP verified?: No Additional Instructions: Please call your Family Physician as soon as possible to schedule a follow-up appointment.you have some minor fluid in you right chest. i suggest next week you have a chest CT TO CHECK ON THE STATUS OF THIS EFFUSION. STOP THE [place] YOUR ON THE COUGH SYRU[ Prescriptions: Amoxicillin 500 mg PO Q8HR #21 tablet Hydrocodone/Chlorphen Polis [Tussionex] 5 ml PO Q12H 5 Days disp.syrin Prednisone 40 mg PO DAILYWM #5 tablet Allergies/Adverse Reactions: Allergies morphine Adverse Reaction (Verified 08/04/18 18:05) Swelling Home Medications: Ambulatory Orders Amlodipine Besylate 10 mg PO DAILY 10/29/16 Gabapentin 100 mg PO TID 10/29/16 Lisinopril [Zestril] 40 mg PO DAILY 10/29/16 Metformin HCl 1,000 mg PO BEDTIME 10/29/16 Carvedilol [Coreg] 6.25 mg PO BID 10/26/17 Clopidogrel Bisulfate [Plavix] 75 mg PO DAILY 12/24/17 Sertraline HCl [Zoloft] 200 mg PO DAILY 06/20/18 Hydrocodone/Acetaminophen [Hydrocodon-Acetaminoph 2.5-325] 1 each PO DAILY PRN 08/04/18 Lorazepam [Ativan] 0.25 mg PO BID PRN 08/04/18 Amoxicillin 500 mg PO Q8HR #21 tablet 11/09/18 Hydrocodone/Chlorphen Polis [Tussionex] 5 ml PO Q12H 5 Days disp.syrin Prednisone 40 mg PO DAILYWM #5 tablet 11/09/18 Ticagrelor [Brilinta] 90 mg PO BID 11/09/18 Disposition Discussed With: Patient
== END 2018-11-09 08:57 | disposition home or self-care (01) ==
LOC: ED 07:13
DX: J20.9 Acute bronchitis, unspecified (principal); Z98.890 Other specified postprocedural states; E11.9 Type 2 diabetes mellitus without complications; E78.5 Hyperlipidemia, unspecified; I25.10 Atherosclerotic heart disease of native coronary artery without angina pectoris; Z79.899 Other long term (current) drug therapy
CPT/HCPCS: 87502; 87651; 94640; 99283

== ENCOUNTER 2018-12-06 13:28 | Emergency (ER) ==
[2018-12-06 13:38] VITALS: BP 176/101; TEMP 97.7; BMI 37.1
[2018-12-06] MEDS ORDERED: NITROSTAT SL STA (14:18)
--- NOTE | 2018-12-06 14:23 | ED.PDOC ---
General ED Provider: Dr. JEREL VALLADARES Chief Complaint: Hypertension Stated Complaint: Severe headache and chest heaviness. Works at [employer]. Was referred by Dr Ayoub. States has hx 3 previous NC's and 5 weeks ago underwent intracoronary stent placement at [facility] Time Seen by Physician: 13:50 Mode of Arrival: Walk-In Information Source: Patient Exam Limitations: No limitations Primary Care Provider: BRIGIDA AYOUB Nursing and Triage Documentation Reviewed and Agree: Yes Does patient meet sepsis criteria?: No System Inflammatory Response Syndrome: Not Applicable Sepsis Protocol: For patient's 13 years and over: Temp is 96.8 and below OR 101 and greater Pulse >90 BPM Resp >20/minute Acutely Altered Mental Status Are patient's symptoms suggestive of a new infection, such as: -Pneumonia -Skin, Soft Tissue -Endocarditis -UTI -Bone, Joint Infection -Implantable Device -Acute Abdominal Infection -Wound Infection -Meningitis -Blood Stream Catheter Infection -Unknown Cardiovascular Complaint Exam - Chest Pain Complaint/Exam Onset: Gradual Duration: 3 hrs Symptoms Are: Still present Timing: Constant Initial Severity: Moderate Current Severity: Mild Location: Reports: Midsternal, Right anterior Pain Radiates: Reports: None Character: Reports: Dull, Aching, Pressure Aggravating: Reports: Exertion Alleviating: Reports: Rest, Nitro Associated Signs and Symptoms: Reports: Nausea, Palpitations. Denies: Diaphoresis, Vomiting, Fever, Cough, Hemoptysis, Back pain, Abdominal pain, Dizziness, Short of air, Calf pain, Calf swelling Related History: Reports: Similar episode, Current Beta Rosalina Related Surgical History: Reports: Cardiac Cath, PTCA/Stent History of Healthcare-Acquired Pneumonia: Reports: No AMI/ACS Risk Factors: Reports: Diabetes, Obesity, Hypertension TAD Risk Factors: Reports: Hypertension Pulmonary Embolism Risk Factors: Reports: None Recent Stress Test: No Recent Echo/LV Function: No JVD Present: No Subcutaneous Emphysema Present: No Diminshed Breath Sounds: No Reproducible Chest Wall Pain: Yes Bilateral Pulses Present: No Unequal Pulses Noted: No If Risk Factors for AMI/ACS Consider: EKG, Cardiac Enzymes Differential Diagnoses: Unstable Angina, Other (Hypertension uncontrolled) Quality Indicators For Acute NC or Cardiac Chest Pain: EKG in 10min. Review of Systems - Review Of Systems Constitutional: Reports: No symptoms Eyes: Reports: No symptoms Ears, Nose, Mouth, Throat: Reports: No symptoms Respiratory: Reports: No symptoms Cardiac: Reports: Chest pain GI: Reports: No symptoms : Reports: No symptoms Musculoskeletal: Reports: No symptoms Skin: Reports: No symptoms Neurological: Reports: Headache Endocrine: Reports: No symptoms Hematologic/Lymphatic: Reports: No symptoms All Other Systems: Reviewed and Negative Past Medical History - Past Medical History Previously Healthy: Yes Endocrine: Reports: DM 2, Dyslipidemia Cardiovascular: Reports: CAD Respiratory: Reports: None Hematological: Reports: None Gastrointestinal: Reports: None Genitourinary: Reports: None Neuro/Psych: Reports: None Musculoskeletal: Reports: None Cancer: Reports: None Last Menstrual Period: 2 weeks - Surgical History General Surgical History: Reports: Tubal ligation, Cholecystectomy - Family History Family History: Reports: None - Social History Smoking Status: Never smoker Hx Substance Use: No Alcohol Screening: Occasionally - Immunizations Tetanus Shot up to Date: Yes Physical Exam - Physical Exam Appearance: Well-appearing, Obese Ill-appearing: Mild Pain Distress: Mild Eyes: MODESTA, EOMI, Conjunctiva clear ENT: Ears normal, Nose normal, Oropharynx normal Neck: Supple Respiratory: Airway patent, Breath sounds clear, Breath sounds equal, Respirations nonlabored Cardiovascular: RRR, Pulses normal, No rub, No murmur GI/: Soft, Nontender, No masses, Bowel sounds normal, No Organomegaly Musculoskeletal: Normal strength, ROM intact, No edema, No calf tenderness Skin: Warm, Dry, Normal color Neurological: Sensation intact Psychiatric: Affect appropriate, Mood appropriate Interpretation - Radiology Interpretation Radiology Results: Positive (small plerual effussion) Critical Care Note - Critical Care Note Total Time (mins): 60 Course - Course Hematology/Chemistry: 12/06/18 14:30 12/06/18 14:30 Orders, Labs, Meds: Lab Review 12/06/18 12/06/18 14:30 14:30 WBC 5.35 RBC 4.81 Hgb 12.6 Hct 40.1 MCV 83.4 MCH 26.2 L MCHC 31.4 L RDW Coeff of Jonah 15.1 H Plt Count 178 Immature Gran % (Auto) 0.6 Neut % (Auto) 67.4 Lymph % (Auto) 24.3 Bullock % (Auto) 4.5 Eos % (Auto) 2.8 Baso % (Auto) 0.4 Immature Gran # (Auto) 0.0 Neut # (Auto) 3.6 Lymph # (Auto) 1.3 Bullock # (Auto) 0.2 L Eos # (Auto) 0.2 Baso # (Auto) 0.0 Sodium 141.5 Potassium 3.68 Chloride 104.6 Carbon Dioxide 29.5 Anion Gap 11.08 BUN 13.2 Creatinine 0.79 Estimated GFR (MDRD) 80.00 BUN/Creatinine Ratio 16.70 Glucose 115.9 H Calcium 9.36 Total Bilirubin 0.41 AST 37.8 H ALT 24.1 Alkaline Phosphatase 103.4 Total Creatine Kinase 86.3 Troponin I < 0.012 Total Protein 7.34 Albumin 4.53 Globulin 2.81 Albumin/Globulin Ratio 1.61 Orders Category Date Time Status EKG-(ED ONLY) Stat CARDIO 12/06/18 14:14 Completed IV [ED IV/MEDIPORT/POWERPORT] .ONCE EMERGENCY 12/06/18 14:19 Active CBC W/ AUTO DIFF Stat LAB 12/06/18 14:30 Completed CMP [COMPREHENSIVE METABOLIC PANEL] Stat LAB 12/06/18 14:30 Completed CREATINE KINASE Stat LAB 12/06/18 14:30 Completed TROPONIN I Stat LAB 12/06/18 14:30 Completed UA [URINALYSIS C & S IF INDICATED] Stat LAB 12/06/18 14:20 Uncollected URINE DRUG SCREEN (RAPID FOR ED) [DRUG SCREEN, URINE, LAB 12/06/18 14:20 Uncollected RAPID] Stat 0.9 % Sodium Chloride [Saline Flush] MEDS 12/06/18 14:19 Active 1 syr IVF PRN PRN Acetaminophen [Tylenol] MEDS 12/06/18 14:31 Discontinued 650 mg PO ONCE STA Carvedilol [Coreg] MEDS 12/06/18 17:50 Discontinued 6.25 mg PO ONCE STA Hydromorphone HCl [Dilaudid 1 mg/ml Syringe] MEDS 12/06/18 15:26 Discontinued 1 mg IVP ONCE STA Nitroglycerin [Nitrostat] MEDS 12/06/18 14:18 Discontinued 0.4 mg SL ONCE STA Ondansetron HCl/Pf [Zofran 4 mg/2 ml] MEDS 12/06/18 15:12 Discontinued 4 mg IVP ONCE STA CHEST, 1V AP ONLY Stat RADS 12/06/18 14:19 Completed Medications Generic Name Dose Route Start Last Admin Trade Name Freq PRN Reason Stop Dose Admin Sodium Chloride 1 syr 12/06/18 14:19 Saline Flush IVF PRN PRN To flush IV Discontinued Medications Generic Name Dose Route Start Last Admin Trade Name Freq PRN Reason Stop Dose Admin Acetaminophen 650 mg 12/06/18 14:31 12/06/18 14:37 Tylenol PO 12/06/18 14:32 650 mg ONCE STA Administration Carvedilol 6.25 mg 12/06/18 17:50 12/06/18 18:06 Coreg PO 12/06/18 17:51 6.25 mg ONCE STA Administration Hydromorphone HCl 1 mg 12/06/18 15:26 12/06/18 15:33 Dilaudid 1 Mg/Ml Syringe IVP 12/06/18 15:27 1 mg ONCE STA Administration Nitroglycerin 0.4 mg 12/06/18 14:18 12/06/18 14:37 Nitrostat SL 12/06/18 14:19 0.4 mg ONCE STA Administration Ondansetron HCl 4 mg 12/06/18 15:12 12/06/18 15:33 Zofran 4 Mg/2 Ml IVP 12/06/18 15:13 4 mg ONCE STA Administration Vital Signs: Temp Pulse Resp BP Pulse Ox 12/06/18 13:29 97.7 F 79 16 176/101 H 97 SEA Risk Score SEA Risk Score: Risk Score Odds of by 30D 0 0.1 (0.1-0.2) 1 0.3 (0.2-0.3) 2 0.4 (0.3-0.5) 3 0.7 (0.6-0.9) 4 1.2 (1.0-1.5) 5 2.2 (1.9-2.6) 6 3.0 (2.5-3.6) 7 4.8 (3.8-6.1) Departure - Departure Time of Disposition: 18:00 Disposition: HOME SELF-CARE Discharge Problem: Hypertensive urgency, Angina pectoris, Cephalgia, Coronary artery disease Instructions: Angina (ED), Heart Healthy Diet (ED), Acute Headache (ED), Hypertension (ED) Condition: Stable Pt referred to PMD for follow-up: Yes (1 wk) IPMP verified?: No Allergies/Adverse Reactions: Allergies iron Adverse Reaction (Verified 12/06/18 13:47) morphine Adverse Reaction (Verified 08/04/18 18:05) Swelling Home Medications: Ambulatory Orders Amlodipine Besylate 10 mg PO DAILY 10/29/16 Gabapentin 100 mg PO TID 10/29/16 Lisinopril [Zestril] 40 mg PO DAILY 10/29/16 Metformin HCl 1,000 mg PO BEDTIME 10/29/16 Carvedilol [Coreg] 6.25 mg PO BID 10/26/17 Sertraline HCl [Zoloft] 200 mg PO DAILY 06/20/18 Hydrocodone/Acetaminophen [Hydrocodon-Acetaminoph 2.5-325] 1 each PO DAILY PRN 08/04/18 Lorazepam [Ativan] 0.25 mg PO BID PRN 08/04/18 Ticagrelor [Brilinta] 90 mg PO BID 11/09/18 Divalproex Sodium [Depakote] 250 mg PO TID 12/06/18 Trazodone HCl 100 mg PO BEDTIME 12/06/18 Disposition Discussed With: Patient Additional Information: 1748: Patient feeling much better;Head ache relieved by 40 % Denies chest pain. Stated Nitro alleviated chest heaviness. BP down to 160/90. Will administer 2nd dose Coreg and plan on discharge to home
[2018-12-06] MEDS ORDERED: TYLENOL PO STA (14:31)
--- NOTE | 2018-12-06 15:10 | DI ---
EXAMINATION: AP chest radiograph. HISTORY: Chest pain COMPARISON: 11/09/2018 FINDINGS: There is unchanged mild left costophrenic angle blunting. Minimal left basilar atelectasis or scarri ng is also again seen. Otherwise the lungs appear clear. No pneumothorax is identified. The cardiomediastinal silhouette is within normal limits. IMPRESSION: Unchanged small left pleural effusion versus pleuroparenchymal scarring. Similar minimal adjacent at electasis or scarring.
[2018-12-06] MEDS ORDERED: ZOFRAN 4 MG/2 ML IVP STA (15:12)
[2018-12-06] MEDS ORDERED: DILAUDID 1 MG/ML SYRINGE IVP STA (15:26)
[2018-12-06] MEDS ORDERED: COREG PO STA (17:50)
== END 2018-12-06 18:24 | disposition home or self-care (01) ==
LOC: ED 13:28
DX: I16.0 Hypertensive urgency (principal); I20.9 Angina pectoris, unspecified; I11.9 Hypertensive heart disease without heart failure; R51 Headache; I25.2 Old myocardial infarction; E11.9 Type 2 diabetes mellitus without complications; E66.9 Obesity, unspecified; Z95.5 Presence of coronary angioplasty implant and graft; Z98.890 Other specified postprocedural states; Z79.899 Other long term (current) drug therapy
CPT/HCPCS: 36415; 80053; 82550; 84484; 85025; 93005; 93010; 96375; 99284